=== PATIENT | male | born 1980 | race American Indian/Alaskan Native ===

== ENCOUNTER 2018-07-05 09:45 | Outpatient (CLI) | payer MEDICAID | END 2018-07-05 09:46 | disposition home or self-care (01) | LOC: C.CARD 09:45 ==

== ENCOUNTER 2018-07-07 08:07 | Outpatient (CLI) | payer MEDICAID | END 2018-07-07 08:08 | disposition home or self-care (01) | LOC: C.CARD 08:07 ==